=== PATIENT | female | born 1980 | race African-American/Black ===

== ENCOUNTER 2020-05-15 08:50 | Emergency (ER) | payer OTHER ==
[2020-05-15 09:46] LABS: #Lymphocytes 1.5 thou/uL (1.20-3.40); #Monocytes 0.6 thou/uL (0.11-0.59); #Neutrophils 1.6 thou/uL (1.40-6.50); %Basophils 0.4 % (0.0-1.0); %Eosinophils 0.8 % (0.0-10.0); %Lymphocytes 41.3 % (21.0-51.0); %Monocytes 14.8 % (0.0-10.0); %Neutrophils 42.8 % (42.0-75.0); Hemoglobin 12.5 g/dL (12.0-16.0); MDiff Complete? YES; Mean Corpuscular HGB CONC 32.4 g/dL (32.0-36.0); Mean Corpuscular Hemoglobin 23.6 pg (27.0-31.0); Mean Corpuscular Volume 72.8 fL (78.0-98.0); Mean Platelet Volume 9.3 fL (7.4-10.4); Microcytosis SLIGHT = 6-15 cells (100X) (0-5/hpf); Platelet Count 216 thou/uL (130-400); Poikilocytosis SLIGHT = 6-15 cells (100X) (0-5/hpf); RBC Distribution Width 13.1 % (11.5-14.5); White Blood Cell (WBC) Count 3.7 thou/uL (4.8-10.8)
--- NOTE | 2020-05-15 09:47 | RAD ---
EXAM: Single view of the chest HISTORY: Shortness of breath and Covid positive COMPARISON: None FINDINGS: Single view of the chest shows a normal sized cardiomediastinal silhouette. There is no olivia dence of consolidation, mass, or pleural effusion. The bones are unremarkable IMPRESSION: No evidence of acute cardiopulmonary disease
[2020-05-15 09:53] LABS: ALT (SGPT) 15 U/L (8-55); AST (SGOT) 21 U/L (5-34); Alkaline Phosphatase 71 U/L (40-110); Anion Gap 13 mmol/L (10-20); BUN (Urea Nitrogen) 8 mg/dL (7.0-18.7); Bilirubin, Total 0.3 mg/dL (0.2-1.2); Calc. Creatinine Clearance 0 mL/min (70-130); Calcium 8.9 mg/dL (7.8-10.44); Carbon Dioxide 24 mmol/L (22-29); Chloride 107 mmol/L (98-107); Estimated GFR-MDRD Greater than 90; Globulin 3.4 g/dL (2.4-3.5); Glucose 86 mg/dL (70-105); Potassium 3.7 mmol/L (3.5-5.1); Protein, Total 7.4 g/dL (6.0-8.3); Sodium 140 mmol/L (136-145)
[2020-05-15] MEDS ORDERED: Albuterol 200 PUFF (6.7GM INHALER) ONE (10:54)
[2020-05-15] MEDS ORDERED: Azithromycin 250 MG TAB ONE (10:56)
[2020-05-15] MEDS ORDERED: Morphine 4 MG/ML VIAL ONE (10:56)
[2020-05-15] MEDS ORDERED: Azithromycin 500 MG VIAL ONE (10:56)
[2020-05-15] MEDS ORDERED: Ondansetron PF 4 MG/2 ML Vial ONE (10:57)
[2020-05-15] MEDS ORDERED: Aspirin Chewable 81 MG TAB ONE (10:57)
[2020-05-15 11:54] LABS: BHCG - Serum Negative (NEGATIVE); Pregs Control Background? CLEAR/WHITE (CLR/WHITE); Pregs Control Bar Appear? YES (CONTROL BAR)
--- NOTE | 2020-05-15 12:58 | CT ---
EXAM: CTA of the chest HISTORY: Covid positive with elevated d-dimer and chest pain COMPARISON: None TECHNIQUE: Multiple contiguous axial images were obtained a CTA of the chest with contrast per pulmon casie embolism protocol. 3-D oblique MIP reformats and direct coronal reformats were performed. FINDINGS: HEART: Mildly enlarged in size without focal cardiac abnormality. PULMONARY ARTERIES: Normal in caliber without filling defects to suggest pulmonary emboli. MEDIASTINUM: No hilar or mediastinal lymphadenopathy. LUNGS: Multifocal peripheral groundglass opacities are seen in the lungs consistent with Covid pneumo mati. There is a calcified granuloma in the left lower lobe. PLEURAL SPACE: No pleural effusion or pneumothorax. CHEST WALL SOFT TISSUES: Unremarkable VISUALIZED OSSEOUS STRUCTURES: No acute abnormality. VISUALIZED SUBDIAPHRAGMATIC STRUCTURES: Unremarkable IMPRESSION: 1. No evidence of pulmonary thromboembolism 2. Multifocal infiltrates
[2020-05-15] MEDS ORDERED: Iopamidol-370 76% 500 ML 1 ML ONE (13:35)
[2020-05-15] MEDS ORDERED: Dexamethasone 10 MG/ML VIAL ONE (14:34)
== END 2020-05-15 14:55 | disposition home or self-care (01) ==
LOC: ERS 08:50
DX: U07.1 COVID-19 (principal); J12.89 Other viral pneumonia; J45.901 Unspecified asthma with (acute) exacerbation; F32.9 Major depressive disorder, single episode, unspecified
CPT/HCPCS: 36415; 71045; 71275; 80053; 83605; 84484; 84703; 85025; 85379; 93005; 94760; 96361; 96374; 96375; J0456; J1100; J2270; J2405; Q9967

== ENCOUNTER 2020-07-05 09:06 | Emergency (ER) | payer SELFPAY ==
[2020-07-05 09:36] LABS: #Eosinphils 0.1 thou/uL (0.0-0.7); #Lymphocytes 1.4 thou/uL (1.20-3.40); #Monocytes 0.5 thou/uL (0.11-0.59); #Neutrophils 2.6 thou/uL (1.40-6.50); %Basophils 0.6 % (0.0-1.0); %Eosinophils 2.1 % (0.0-10.0); %Lymphocytes 29.8 % (21.0-51.0); %Monocytes 10.8 % (0.0-10.0); %Neutrophils 56.7 % (42.0-75.0); Mean Corpuscular HGB CONC 32.5 g/dL (32.0-36.0); Mean Platelet Volume 9.6 fL (7.4-10.4); Platelet Count 241 thou/uL (130-400); RBC Distribution Width 15.3 % (11.5-14.5); Red Blood Cell (RBC) Count 5.39 mill/uL (4.20-5.40); White Blood Cell (WBC) Count 4.6 thou/uL (4.8-10.8)
[2020-07-05] MEDS ORDERED: Aspirin Chewable 81 MG TAB ONE (09:46)
--- NOTE | 2020-07-05 09:46 | RAD ---
EXAM: Single view of the chest HISTORY: Covid positive with chest pain COMPARISON: 05/15/2020 FINDINGS: Single view of the chest shows a normal sized cardiomediastinal silhouette. There is no olivia dence of consolidation, mass, or pleural effusion. No acute osseous abnormality. IMPRESSION: No evidence of acute cardiopulmonary disease
[2020-07-05 09:53] LABS: ALT (SGPT) 10 U/L (8-55); AST (SGOT) 14 U/L (5-34); Albumin 4.2 g/dL (3.5-5.0); Alkaline Phosphatase 48 U/L (40-110); Anion Gap 14 mmol/L (10-20); BUN (Urea Nitrogen) 11 mg/dL (7.0-18.7); Bilirubin, Total 0.5 mg/dL (0.2-1.2); Calc. Creatinine Clearance 0 mL/min (70-130); Calcium 8.9 mg/dL (7.8-10.44); Carbon Dioxide 20 mmol/L (22-29); Chloride 108 mmol/L (98-107); Estimated GFR-MDRD Greater than 90; Globulin 3.1 g/dL (2.4-3.5); Glucose 88 mg/dL (70-105); Protein, Total 7.3 g/dL (6.0-8.3); Sodium 138 mmol/L (136-145)
[2020-07-05] MEDS ORDERED: Albuterol 200 PUFF (6.7GM INHALER) ONE (10:00)
== END 2020-07-05 10:41 | disposition left against medical advice (07) ==
LOC: ERS 09:06
DX: R07.89 Other chest pain (principal); R06.2 Wheezing; Z86.19 Personal history of other infectious and parasitic diseases; I10 Essential (primary) hypertension; F32.9 Major depressive disorder, single episode, unspecified
CPT/HCPCS: 71045; 80053; 84484; 85025; 85379; 93005

== ENCOUNTER 2020-11-24 21:30 | Emergency (ER) | payer OTHER, SELFPAY ==
[2020-11-24] MEDS ORDERED: Acetaminophen 500 MG TAB ONE (21:53)
[2020-11-24] MEDS ORDERED: Ibuprofen 800 MG TAB ONE (21:53)
[2020-11-24] MEDS ORDERED: Ondansetron ODT 4 MG TAB ONE (21:53)
== END 2020-11-24 22:54 | disposition home or self-care (01) ==
LOC: ERS 21:30
DX: B34.9 Viral infection, unspecified (principal); R11.2 Nausea with vomiting, unspecified; I10 Essential (primary) hypertension; J45.909 Unspecified asthma, uncomplicated
CPT/HCPCS: 99283; Q0162

== ENCOUNTER 2021-03-24 10:10 | Emergency (ER) | payer OTHER | END 2021-03-24 11:16 | disposition home or self-care (01) | LOC: ERS 10:10 | DX: L03.113 Cellulitis of right upper limb (principal); I10 Essential (primary) hypertension; J45.909 Unspecified asthma, uncomplicated; W57.XXXA Bitten or stung by nonvenomous insect and other nonvenomous arthropods, initial encounter | CPT/HCPCS: 99283 ==

== ENCOUNTER 2021-05-15 10:57 | Emergency (ER) | payer OTHER | END 2021-05-15 12:20 | disposition home or self-care (01) | LOC: ERS 10:57 | DX: S96.912A Strain of unspecified muscle and tendon at ankle and foot level, left foot, initial encounter (principal); I10 Essential (primary) hypertension; J45.909 Unspecified asthma, uncomplicated; W22.8XXA Striking against or struck by other objects, initial encounter ==

== ENCOUNTER 2021-07-21 14:10 | Outpatient (CLI) | payer OTHER | END 2021-07-21 14:11 | disposition home or self-care (01) | LOC: BICRAD 14:10 | PROVIDERS: ATTEND Nurse Practitioner Family | DX: M25.562 Pain in left knee (principal) ==

== ENCOUNTER 2021-08-21 09:48 | Emergency (ER) | payer OTHER | END 2021-08-21 10:18 | disposition home or self-care (01) | LOC: ERS 09:48 | DX: L02.214 Cutaneous abscess of groin (principal); I10 Essential (primary) hypertension | CPT/HCPCS: 99283 ==

== ENCOUNTER 2023-01-12 08:13 | Emergency (ER) | payer BC, OTHER ==
[2023-01-12] MEDS ORDERED: HYDROcodone/Acetaminophen 5/325 mg Tablet ONE (08:47)
== END 2023-01-12 10:06 | disposition home or self-care (01) ==
LOC: ERS 08:13
DX: G89.18 Other acute postprocedural pain (principal); K08.89 Other specified disorders of teeth and supporting structures; I10 Essential (primary) hypertension
CPT/HCPCS: 99282